=== PATIENT | female | born 1960 | race African-American/Black ===

== ENCOUNTER 2020-12-21 05:16 | Emergency (ER) | payer OTHER ==
--- NOTE | 2020-12-21 05:30 | Event Note ---
ED Screening Note Date of service: 12/21/20 Time: 05:28 ED Screening Note: Per family, patient is a 60-year-old [place] female with history of hypertension, tkv-wvrjcsu-rgvhnnctv diabetes and hyperlipidemia presents to the ED with persistent severe right flank pain that radiates to the right upper quadrant area for the last 3 months intermittently, worse in the last 2 days. Family states that the patient was unable to sleep because of worsening pain. Patient denies dizziness, syncope, fever, chills, cough, chest pain, shortness of breath, dysuria, urinary frequency and urgency, vaginal bleeding, vaginal discharge, traumatic injury, low back pain or numbness and tingling or weakness of lower extremities bilaterally. This initial assessment/diagnostic orders/clinical plan/treatment(s) is/are subject to change based on patients health status, clinical progression and re-assessment by fellow clinical providers in the ED. Further treatment and workup at subsequent clinical providers discretion. Patient/guardian urged not to elope from the ED as their condition may be serious if not clinically assessed and managed. Initial orders include: CBC, CMP, UA, lipase, troponin, EKG, CT abdomen pelvis with contrast
--- NOTE | 2020-12-21 06:10 | Cat Scan Report ---
CT ABDOMEN AND PELVIS WITHOUT CONTRAST HISTORY: flank pain. COMPARISON: None. TECHNIQUE: CT images of the abdomen and pelvis were obtained without administration of intravenous co ntrast. All CT scans at this location are performed using CT dose reduction for ALARA by means of au tomated exposure control. FINDINGS: Lungs/bones: Lung bases are clear Abdomen/pelvis: Within limits of a noncontrast examination the liver, spleen, adrenal glands, pancre as, gallbladder and upper GI tract appear normal. No renal stones are identified. No hydronephrosis. No ureteral stones are seen. No bowel obstruction is identified. No free fluid in the abdomen or pelv is. No acute bone findings. There is anterolisthesis of L5 on S1 with bilateral pars defects IMPRESSION: 1. Anterior listhesis of L5 on S1 with bilateral pars defects. Bilateral neuroforaminal narrowing. 2. No renal or ureteral stone is identified. Signer Name: Lance Pearce MD Signed: 12/21/2020 6:05 AM Workstation Name: [id number]
[2020-12-21 06:27] LABS: Hematocrit 36.1 % (30.3-42.9); Hemoglobin 12.1 gm/dl (10.1-14.3); Mean Corpuscular HGB Conc 34 % (30-34); Mean Corpuscular Volume 88 fl (79-97); Platelet Count 266 K/mm3 (140-440); Red Blood Count 4.13 M/mm3 (3.65-5.03); Red Cell Distribution Width 13.6 % (13.2-15.2)
[2020-12-21 07:11] LABS: Band Neutrophils # (Manual) 0.1 K/mm3; Total Cells Counted 100
[2020-12-21 07:12] LABS: Anisocytosis 1+; Platelet Estimate Consistent w Auto
[2020-12-21 07:28] LABS: Alanine Aminotransferase 12 units/L (7-56); Albumin 4.8 g/dL (3.9-5); Blood Urea Nitrogen 16 mg/dL (7-17); Calcium 9.9 mg/dL (8.4-10.2); Hemolysis Index 3
[2020-12-21 07:36] LABS: BUN/Creatinine Ratio 40
--- NOTE | 2020-12-21 08:16 | Emergency Department Report ---
ED Abdominal Pain HPI - General Chief Complaint: Abdominal Pain Stated Complaint: RIGHT FLANK PAIN Time Seen by Provider: 12/21/20 07:58 Source: patient Mode of arrival: Ambulatory Limitations: Language Barrier - History of Present Illness Initial Comments: Chief complaint: Abdominal pain Nurse prepared foods service team member provided Arabic interpretation. HPI: This is a 60-year-old female with history of hypertension, xnc-ebilazf-ulgcwtvat diabetes, dyslipidemia who presents with right upper abdominal pain rating to the right flank for the past 3 months. Pain is dull 7 out of 10 in severity. Worsened over the last 2 days. Denies fever, vomiting, diarrhea, trauma, chest pain. MD Complaint: abdominal pain -: Gradual, month(s) (3 months) Location: RUQ Radiation: R flank Severity scale (0 -10): 7 Quality: aching, dull Consistency: intermittent Improves With: nothing Worsens With: movement, other (Pain is worse when she bends over) Associated Symptoms: denies other symptoms - Related Data Previous Rx's Medication Instructions Recorded Last Taken Type HYDROcodone/APAP 5-325 [[place] 1 each PO Q6HR PRN #15 tablet 12/21/20 Unknown Rx 5/325] Ibuprofen [Motrin 400 MG tab] 400 mg PO TID 5 Days #15 12/21/20 Unknown Rx ED Review of Systems ROS: Stated complaint: RIGHT FLANK PAIN Other details as noted in HPI Comment: All other systems reviewed and negative Constitutional: denies: fever, malaise Respiratory: denies: cough, shortness of breath Gastrointestinal: abdominal pain. denies: nausea, vomiting ED Past Medical Hx - Past Medical History Previous Medical History?: Yes Hx Hypertension: Yes Hx Diabetes: Yes Additional medical history: Dyslipidemia - Surgical History Past Surgical History?: No - Social History Smoking Status: Never Smoker Substance Use Type: None - Medications Home Medications: Home Medications Medication Instructions Recorded Confirmed Last Taken Type HYDROcodone/APAP 5-325 [[place] 1 each PO Q6HR PRN #15 tablet 12/21/20 Unknown Rx 5/325] Ibuprofen [Motrin 400 MG tab] 400 mg PO TID 5 Days #15 12/21/20 Unknown Rx ED Physical Exam - General Limitations: Language Barrier General appearance: alert, in no apparent distress, other (Appears well, nontoxic appearing) - Head Head exam: Present: atraumatic, normocephalic - Eye Eye exam: Present: normal appearance - ENT ENT exam: Present: mucous membranes moist - Neck Neck exam: Present: normal inspection, full ROM - Respiratory Respiratory exam: Present: normal lung sounds bilaterally. Absent: respiratory distress, wheezes, rales, rhonchi, stridor - Cardiovascular Cardiovascular Exam: Present: regular rate, normal rhythm, normal heart sounds. Absent: systolic murmur, diastolic murmur, rubs, gallop - GI/Abdominal GI/Abdominal exam: Present: soft, normal bowel sounds. Absent: distended, tenderness, guarding, rebound - Extremities Exam Extremities exam: Present: normal inspection - Neurological Exam Neurological exam: Present: alert, oriented X3 - Psychiatric Psychiatric exam: Present: normal affect, normal mood - Skin Skin exam: Present: warm, dry, intact, normal color. Absent: rash ED Course Vital Signs 12/21/20 05:25 Temperature 98.3 F Pulse Rate 88 Respiratory 18 Rate Blood Pressure 168/82 O2 Sat by Pulse 100 Oximetry ED Medical Decision Making - Lab Data Result diagrams: 12/21/20 05:58 12/21/20 05:58 Laboratory Results - last 24 hr 12/21/20 12/21/20 12/21/20 05:58 05:58 05:58 WBC 8.7 RBC 4.13 Hgb 12.1 Hct 36.1 MCV 88 MCH 29 MCHC 34 RDW 13.6 Plt Count 266 Lymph # (Auto) Steam Fitter Supervisor Maintenance Add Manual Diff Complete Total Counted 100 Seg Neuts % (Manual) 53.0 Band Neutrophils % 1.0 Lymphocytes % (Manual) 39.0 H Monocytes % (Manual) 4.0 Eosinophils % (Manual) 3.0 Nucleated RBC % Not Reportable Seg Neutrophils # Man 4.6 Band Neutrophils # 0.1 Lymphocytes # (Manual) 3.4 Abs React Lymphs (Man) 0.0 Monocytes # (Manual) 0.3 Eosinophils # (Manual) 0.3 Basophils # (Manual) 0.0 Metamyelocytes # 0.0 Myelocytes # 0.0 Promyelocytes # 0.0 Blast Cells # 0.0 WBC Morphology Not Reportable Hypersegmented Neuts Not Reportable Hyposegmented Neuts Not Reportable Hypogranular Neuts Not Reportable Smudge Cells Not Reportable Toxic Granulation Not Reportable Toxic Vacuolation Not Reportable Dohle Bodies Not Reportable Pelger-Huet Anomaly Not Reportable Marimar Rods Not Reportable Platelet Estimate Consistent w auto Clumped Platelets Not Reportable Plt Clumps, EDTA Not Reportable Large Platelets Not Reportable Giant Platelets Not Reportable Platelet Satelliting Not Reportable Plt Morphology Comment Not Reportable RBC Morphology Not Reportable Dimorphic RBCs Not Reportable Polychromasia Not Reportable Hypochromasia Not Reportable Poikilocytosis Not Reportable Anisocytosis 1+ Microcytosis Not Reportable Macrocytosis Not Reportable Spherocytes Not Reportable Pappenheimer Bodies Not Reportable Sickle Cells Not Reportable Target Cells Not Reportable Tear Drop Cells Not Reportable Ovalocytes Not Reportable Helmet Cells Not Reportable Raygo[place] Bodies Not Reportable [place] Rings Not Reportable Gleason Cells Not Reportable Bite Cells Not Reportable Crenated Cell Not Reportable Elliptocytes Not Reportable Acanthocytes (Spur) Not Reportable Rouleaux Not Reportable Hemoglobin C Crystals Not Reportable Schistocytes Not Reportable Malaria parasites Not Reportable Cesar Bodies Not Reportable Hem Pathologist Commnt No Sodium 141 Potassium 4.3 Chloride 103.7 Carbon Dioxide 28 Anion Gap 14 BUN 16 Creatinine 0.4 L Estimated GFR > 60 BUN/Creatinine Ratio 40 Glucose 131 H Calcium 9.9 Total Bilirubin 0.30 AST 15 ALT 12 Alkaline Phosphatase 72 Troponin T < 0.010 Total Protein 7.5 Albumin 4.8 Albumin/Globulin Ratio 1.8 Lipase 35 - EKG Data -: EKG Interpreted by Ne EKG shows normal: sinus rhythm, axis, intervals, QRS complexes, ST-T waves Rate: normal - EKG Data Interpretation: normal EKG 12/21/20 08:16 EKG obtained 0553 EKG interpreted by pr Normal sinus rhythm normal rate normal axis normal intervals no ST elevation no ST-T signs of ischemia normal EKG rate 75 bpm - Radiology Data Radiology results: report reviewed Patient Name: MARTHA DEAL Gender: Female Date of : 1960 Home Phone: Referring Provider: TA MITCHELL Organization: [facility] Accession Number: [id number] Requested Date: December 21, 2020 05:26 Report Status: Final Requested Procedure: 1 Procedure Description: CT abdomen pelvis wo con Modality: CT Findings Reporting MD: Lance Pearce Dictation Time: December 21, 2020 05:05 Mold Stamper: Not available Cloth Packer Date: CT ABDOMEN AND PELVIS WITHOUT CONTRAST HISTORY: flank pain. COMPARISON: None. TECHNIQUE: CT images of the abdomen and pelvis were obtained without administration of intravenous contrast. All CT scans at this location are performed using CT dose reduction for ALARA by means of automated exposure control. FINDINGS: Lungs/bones: Lung bases are clear Abdomen/pelvis: Within limits of a noncontrast examination the liver, spleen, adrenal glands, pancreas, gallbladder and upper GI tract appear normal. No renal stones are identified. No hydronephrosis. No ureteral stones are seen. No bowel obstruction is identified. No free fluid in the abdomen or pelvis. No acute bone findings. There is anterolisthesis of L5 on S1 with bilateral pars defects IMPRESSION: 1. Anterior listhesis of L5 on S1 with bilateral pars defects. Bilateral neuroforaminal narrowing. 2. No renal or ureteral stone is identified. Signer Name: Lance Pearce MD Signed: 12/21/2020 5:05 AM Workstation Name: [email or web address] - Medical Decision Making Right flank pain worse with movement bending over. CT abdomen pelvis revealed anterior listhesis L5-S1 with bilateral pars defect I suspect that this is the cause of her pain. She is neurologically intact. No red flags such as neurological signs symptoms. No bowel or bladder incontinence. Next I have prescribed ibuprofen and [place]. I referred her to public finance specialist. I used [employer] language line educational interpreter to give education and results of tests obtained. Critical care attestation.: If time is entered above; I have spent that time in minutes in the direct care of this critically ill patient, excluding procedure time. ED Disposition Clinical Impression: Spondylolisthesis at L5-S1 level, Flank pain, Lumbar degenerative disc disease Disposition: - TO HOME OR SELFCARE Is pt being admited?: No Does the pt Need Aspirin: No Condition: Stable Instructions: Abdominal Pain (ED), Spondylolisthesis Prescriptions: Ibuprofen [Motrin 400 MG tab] 400 mg PO TID 5 Days #15 HYDROcodone/APAP 5-325 [[place] 5/325] 1 each PO Q6HR PRN #15 tablet PRN Reason: Pain Referrals: ELLEN MALDONADO II, MD [Staff Physician] - 3-5 Days
[2020-12-21 09:17] VITALS: BP 164/89
--- NOTE | 2020-12-23 19:02 | Electrocardiograph Report ---
[facility] Test Date: 2020-12-21 Test Time: 05:53:55 Pat Name: MARTHA DEAL Department: Room: Gender: F Soap Chipper: DORIS : 1960 Requested By: TA MITCHELL Order Number: [id number] Reading MD: Amanda Goldstein Measurements Intervals [place] Rate: 77 P: 55 NV: 151 QRS: 78 QRSD: 85 T: 71 QT: 374 QTc: 425 Interpretive Statements Sinus rhythm No previous ECG available for comparison Electronically Signed On 12-23-2020 19:01:59 EDT by Amanda Goldstein
== END 2020-12-21 09:19 | disposition home or self-care (01) ==
LOC: ED 05:16
DX: M43.16 Spondylolisthesis, lumbar region (principal); M43.18 Spondylolisthesis, sacral and sacrococcygeal region; M51.36 Other intervertebral disc degeneration, lumbar region; I10 Essential (primary) hypertension; E11.9 Type 2 diabetes mellitus without complications; Z98.890 Other specified postprocedural states; Z79.899 Other long term (current) drug therapy
CPT/HCPCS: 36415; 74176; 80053; 83690; 84484; 85007; 85025; 93005; 99284